=== PATIENT | male | born 1940 | race Caucasian/White ===

== ENCOUNTER 2018-08-23 07:00 | Day surgery (SDC) | payer MEDICARE ==
[~2018-08-23] VITALS: Ht 180.3 cm; Wt 93.8 kg
[~2018-08-23 07:00] MED LIST: ALLO300 PO; BISA5EC PO; Cipro500 MG PO; ENSURE CLEAR198 ML PO; LEVSOD100 PO; LISI5 PO; METF500 PO; Metformin HCl500 MG PO; PANT40 PO; PRESERVISION A1 EACH PO; Prinivil10 MG PO; Senokotxtra17.2 MG PO; Synthroid100 MCG PO; TAMS.4ER PO
[2018-08-23] MEDS ORDERED: LEVSOD50 (07:54)
--- NOTE | 2018-08-23 08:37 | NUR ---
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 ANESTHESIOLOGIST REQUESTED 12-LEAD EKG TO BE DONE IN SDU AFTER CASE. WILL CONTINUE TO MONITOR INTRA-OPERATIVELY
== END 2018-08-23 09:40 | disposition home or self-care (01) ==
LOC: ORSCSDS 07:00
PROVIDERS: Ophthalmology
PROC: 08RJ3JZ Replacement of Right Lens with Synthetic Substitute, Percutaneous Approach (ICD-10-PCS; principal; 2018-08-23 08:30)
DX: H25.11 Age-related nuclear cataract, right eye (principal); I10 Essential (primary) hypertension; E11.9 Type 2 diabetes mellitus without complications; Z79.899 Other long term (current) drug therapy
CPT/HCPCS: 82947; 93005; 93010; J2001; J2250; J3010; J3301; J7120; V2632

== ENCOUNTER 2021-07-24 09:44 | Emergency (ER) | payer MEDICARE ==
[~2021-07-24] VITALS: Ht 182.9 cm; Wt 83.9 kg
[~2021-07-24 09:44] MED LIST changes: +ALLOPURINOL100 M1 PO; +LEVOTHYROXINE PO; +LEVSOD50; +ONDA4ODT MM
[2021-07-24 11:48] LABS: Source, Urine Clean Catch
[2021-07-24 12:05] LABS: Bilirubin, Urine Neg (Neg); Blood, Urine 2+ (Neg); Glucose Qualitative, Urine Neg (Neg); Ketones, Urine Neg (Neg); Leukocyte Esterase, Urine Neg (Neg); Nitrite, Urine Neg (Neg); Protein, Urine 1+ (Neg); Specific Gravity, Urine 1.015 (1.003-1.022); Urobilinogen, Urine NORM (Normal)
[2021-07-24 12:13] LABS: Appearance, Urine Hazy (Clear); Color, Urine Yellow (P-Yellow)
[2021-07-24 12:15] LABS: White Blood Cells, Urine 0-2 /hpf (0-5)
[2021-07-24 12:16] LABS: Bacteria Rare /hpf; Squamous Epithelial Cells Rare /hpf (Few)
[2021-07-24 12:16] LABS: Albumin, Blood 3.1 g/dL (3.4-5.0); Albumin/Globulin Ratio 0.9 (0.8-1.8); Bilirubin, Total 0.7 mg/dL (0.1-1.0); Bun/Creatinine Ratio 20.7 (12.0-20.0); Calcium, Blood 8.6 mg/dL (8.5-10.1); Creatinine, Blood 1.45 mg/dL (0.60-1.20); Globulin, Blood 3.5 g/dL (2.2-4.0); Potassium, Blood 4.7 mmol/L (3.5-5.5); Total Protein, Blood 6.6 g/dL (6.4-8.2)
[2021-07-24 12:47] LABS: BASOPHILS ABSOLUTE AUTO 0.04 K/mm3 (0.00-0.23); BASOPHILS PERCENT AUTO 1 % (0-2); EOSINOPHILS ABSOLUTE AUTO 0.08 K/mm3 (0.00-0.68); EOSINOPHILS PERCENT AUTO 2 % (0-6); Hematocrit 40.6 % (37.0-53.0); Hemoglobin 13.5 g/dL (13.5-17.5); IMMATURE GRAN ABSOLUTE AUTO 0.08 K/mm3 (0.00-0.10); IMMATURE GRAN PERCENT AUTO 2 % (0-1); LYMPHOCYTES ABSOLUTE AUTO 1.28 K/mm3 (0.84-5.20); LYMPHOCYTES PERCENT AUTO 25 % (21-46); MONOCYTES ABSOLUTE AUTO 0.71 K/mm3 (0.16-1.47); MONOCYTES PERCENT AUTO 14 % (4-13); Mean Corpuscular HGB 29.9 pg (26.0-34.0); Mean Corpuscular HGB Conc 33.3 g/dL (31.5-36.5); Mean Corpuscular Volume 90 fL (80-100); NEUTROPHILS ABSOLUTE AUTO 2.84 K/mm3 (1.96-9.15); NEUTROPHILS PERCENT AUTO 57 % (41-73); Platelet Count 143 K/mm3 (150-400); RDW Coefficient Variation 13.7 % (11.7-14.2); RDW Standard Deviation 44.5 fL (35.1-46.3); Red Blood Cell Count 4.51 M/mm3 (4.30-5.90); White Blood Cell Count 5.03 K/mm3 (4.00-11.30)
== END 2021-07-24 14:38 | disposition home or self-care (01) ==
LOC: ER 09:44
PROVIDERS: Emergency Medicine
DX: Z00.8 Encounter for other general examination (principal); I10 Essential (primary) hypertension; E11.40 Type 2 diabetes mellitus with diabetic neuropathy, unspecified; M10.9 Gout, unspecified; E03.9 Hypothyroidism, unspecified; Z79.899 Other long term (current) drug therapy; W01.0XXA Fall on same level from slipping, tripping and stumbling without subsequent striking against object, initial encounter
CPT/HCPCS: 36415; 51701; 80053; 81001; 82550; 85025; 99283-25